=== PATIENT | female | born 1945 | race Caucasian/White ===

== ENCOUNTER 2020-09-01 10:59 | Outpatient (REF) | payer MEDICARE, OTHER, SELFPAY ==
--- NOTE | ~2020-09-01 | MM_ITS ---
EXAMINATION: BONE DENSITOMETRY CLINICAL INDICATION: Osteoporosis. COMPARISON: Previous BD dated 07/11/2018 and baseline BD dated 08/21/2012. TECHNIQUE: Using a [employer] DXA System (software version: 13.1) manufactured by [employer], dual-energy x-ray absorptiometry was performed of the lumbar spine and left hip. The images are of good technical quality. Summary results are attached. FINDINGS: AP SPINE L2-L4 (excluding L1): The data of L1-L4 has been changed to exclude the L1 vertebral body, because degenerative changes at this level may cause overestimation of lumbar spine density. Current: BMD 0.996 g/cm2, Z-score 0.6, T-score -1.7, osteopenia, 0.9% increase from previous, 6.9% increase from baseline (<5% change is not significant). Prior: BMD 0.987 g/cm2. Baseline: BMD 0.932 g/cm2. LEFT FEMUR, NECK: Current: BMD 0.583 g/cm2, Z-score -1.0, T-score -3.3, osteoporosis. Prior: BMD 0.558 g/cm2. Baseline: BMD 0.587 g/cm2. LEFT FEMUR, TOTAL: Current: BMD 0.648 g/cm2, Z-score -0.7, T-score -2.9, osteoporosis, 2.9% increase from previous, 1.1% increase from baseline (<5% change is not significant). Prior: BMD 0.987 g/cm2. Baseline: BMD 0.932 g/cm2. IDENTIFIED RISK FACTORS: Early menopause, height loss, osteoporosis, secondary osteoporosis. HISTORY OF FRACTURE: None listed. MEDICATIONS: Calcium, vitamin D, ERT/SERMS. MM/XR DEXA axial skeleton IMPRESSION: 1. DIAGNOSIS: Osteoporosis based on the lowest T-score value of -3.3 in the femoral neck applying World Health Organization criteria. 2. 10-YEAR FRACTURE RISK PREDICTION, FRAX: Major osteoporotic fracture (clinical spine, forearm, hip or shoulder) 23.8%. Hip fracture 10.6%. 3. Treatment Recommendations: NOF guidelines recommend consideration for treatment in postmenopausal women and men age 50 and older presenting with the following: -A hip or vertebral (clinical or morphometric) fracture. -T-score less than or equal to -2.5 at the femoral neck or spine after appropriate evaluation to exclude secondary causes. -Low bone mass at the hip or spine and a 10-year fracture probability by FRAX of greater than or equal to 3% for hip fracture or greater than or equal to 20% for major osteoporotic fracture based on the [place] adapted WHO algorithm. 4. Other Recommendations: All treatment decisions require clinical judgment and consideration of individual patient factors, including patient preferences, comorbidities, previous drug use, risk factors not captured in the FRAX model (e.g. frailty, falls, vitamin D deficiency, increased bone turnover, interval significant decline in bone density) and possible under or overestimation of fracture risk by FRAX. Additional medical evaluation for secondary cause of low bone mineral density may be appropriate. FUTURE SCAN RECOMMENDATION: People with diagnosed cases of osteoporosis or at high risk for fracture should have regular bone mineral density tests. For patients eligible for Medicare, routine testing is allowed once every 2 years. The testing frequency can be increased to one year for patients who have rapidly progressing disease, those who are receiving or discontinuing medical therapy to restore bone mass, or have additional risk factors.
== END 2020-09-01 11:00 | disposition home or self-care (01) ==
LOC: HO.MAMMO 10:59
PROVIDERS: Absent Provider Family Medicine; PCP Internal Medicine; Visit Provider Internal Medicine
DX: M81.0 Age-related osteoporosis without current pathological fracture (principal); R53.83 Other fatigue; N95.1 Menopausal and female climacteric states; E55.9 Vitamin D deficiency, unspecified
CPT/HCPCS: 77080

== ENCOUNTER 2020-09-01 11:39 | Outpatient (REF) | payer MEDICARE, OTHER, SELFPAY ==
[2020-09-01 12:35] LABS: MANUAL DIFF FLAG NO
[2020-09-01 12:44] LABS: Basophils Absolute Auto 0.1 X10*3/uL (0.0-0.2); Basophils Percent Auto 0.8 % (0-2); Eosinophils Absolute Auto 0.2 X10*3/uL (0.0-0.4); Eosinophils Percent Auto 2.1 % (0-4); Hematocrit 39.8 % (37-47); Hemoglobin 13.1 g/dl (12.0-16.0); Imm Gran Abs Auto 0.02 X10*3/uL (0.00-0.03); Imm Gran Pct Auto 0.3 % (0.0-0.4); Lymphocytes Percent Auto 28.1 % (20-40); Mean Corpuscular HGB Conc 32.9 g/dl (31.0-35.0); Mean Corpuscular Hemoglobin 32.8 pg (27.0-33.0); Mean Corpuscular Volume 99.5 fL (80-98); Mean Platelet Volume 11.2 fL (9.4-12.3); Monocytes Absolute Auto 0.5 X10*3/uL (0.1-1.2); Monocytes Percent Auto 7.5 % (2-11); Neutrophils Absolute Auto 4.4 X10*3/uL (2.0-8.3); Neutrophils Percent Auto 61.2 % (45-73); Platelet Count 206 X10*3/uL (160-400); Red Cell Distribution Width 12.7 % (11.0-16.0); White Blood Count 7.2 X10*3/uL (4.8-10.8)
[2020-09-01 13:14] LABS: Anion Gap 13 (12-20); Carbon Dioxide 27 mmol/L (22-29); Chloride 106 mmol/L (96-108); Potassium 4.3 mmol/L (3.3-5.1); Sodium 142 mmol/L (135-145)
[2020-09-01 13:15] LABS: Alanine Aminotransferase 17 U/L (0-31); Albumin Level 4.2 g/dL (3.5-5.0); Alkaline Phosphatase 48 U/L (39-117); Aspartate Amino Transferase 22 U/L (5-31); Bilirubin Total 0.4 mg/dL (0.0-1.0); Blood Urea Nitrogen 20 mg/dL (9-16); Calcium 9.3 mg/dL (8.4-10.2); Estimated Glomerular Filt Rate > 60; Glucose Random 96 mg/dL (60-115); Total Protein 6.6 g/dL (6.5-8.0)
[2020-09-01 13:36] LABS: Vitamin D 25-OH Total 40.6 ng/mL (>30)
[2020-09-03 02:48] LABS: DHEA Sulfate 83 mcg/dL (7-177)
[2020-09-05 15:32] LABS: Testosterone, Total 36 ng/dL (2-45)
[2020-09-06 13:16] LABS: Pregnenolone, LC/MS 39 ng/dL (22-237)
[2020-09-07 23:22] LABS: Progesterone 5.1 ng/mL
[2020-09-08 01:46] LABS: Estradiol, Ultrasensitive 113 pg/mL
== END 2020-09-01 11:40 | disposition home or self-care (01) ==
LOC: HO.LAB 11:39
PROVIDERS: Family Medicine; PCP Internal Medicine; Visit Provider Internal Medicine
DX: Z20.822 Contact with and (suspected) exposure to COVID-19 (principal)
CPT/HCPCS: 80053; 82306; 82627; 82670; 82681; 84143; 84144; 84403; 85025; U0003; U0005

== ENCOUNTER 2020-10-27 07:59 | Outpatient (REF) | payer MEDICARE, OTHER, SELFPAY ==
[2020-10-28 16:02] LABS: Calcium (PTHI) 9.8 mg/dL (8.6-10.4); PTHI 33 pg/mL (14-64)
[2020-10-31 16:16] LABS: Pregnenolone, LC/MS 101 ng/dL (22-237)
[2020-11-01 12:26] LABS: DHEA Sulfate 269 mcg/dL (7-177)
[2020-11-01 12:37] LABS: Testosterone, Free 3.5 pg/mL (0.2-3.7); Testosterone, Total 47 ng/dL (2-45)
[2020-11-03 20:52] LABS: Estradiol Free 0.25 pg/mL; Estradiol, Ultrasensitive 15 pg/mL
[2020-11-04 19:32] LABS: Progesterone 0.2 ng/mL
== END 2020-10-27 08:00 | disposition home or self-care (01) ==
LOC: HO.LAB 07:59
PROVIDERS: PCP Internal Medicine; Visit Provider Family Medicine
DX: N95.8 Other specified menopausal and perimenopausal disorders (principal); M81.8 Other osteoporosis without current pathological fracture; R53.83 Other fatigue
CPT/HCPCS: 36415; 82627; 82670; 82681; 83970; 84143; 84144; 84402; 84403

== ENCOUNTER 2020-11-02 14:31 | Outpatient (REF) | payer MEDICARE, OTHER, SELFPAY | END 2020-11-02 14:32 | disposition home or self-care (01) | LOC: HO.LAB 14:31 | PROVIDERS: PCP Internal Medicine; Visit Provider Internal Medicine | DX: Z20.822 Contact with and (suspected) exposure to COVID-19 (principal) | CPT/HCPCS: C9803; U0003; U0005 ==

== ENCOUNTER 2022-07-19 14:47 | Outpatient (REF) | payer MEDICARE, OTHER, SELFPAY ==
[2022-07-19 15:06] LABS: MANUAL DIFF FLAG NO
[2022-07-19 15:45] LABS: Basophils Absolute Auto 0.1 X10*3/uL (0.0-0.2); Basophils Percent Auto 0.6 % (0-2); Eosinophils Absolute Auto 0.3 X10*3/uL (0.0-0.4); Eosinophils Percent Auto 2.4 % (0-4); Hemoglobin 12.8 g/dl (12.0-16.0); Imm Gran Abs Auto 0.04 X10*3/uL (0.00-0.03); Imm Gran Pct Auto 0.4 % (0.0-0.4); Lymphocytes Percent Auto 26.7 % (20-40); Mean Corpuscular HGB Conc 32.8 g/dl (31.0-35.0); Mean Corpuscular Hemoglobin 32.7 pg (27.0-33.0); Mean Corpuscular Volume 99.5 fL (80.0-98.0); Mean Platelet Volume 11.3 fL (9.4-12.3); Monocytes Absolute Auto 0.8 X10*3/uL (0.1-1.2); Monocytes Percent Auto 7.3 % (2-11); Neutrophils Absolute Auto 6.9 x10*3/uL (2.0-8.3); Neutrophils Percent Auto 62.6 % (45-73); Platelet Count 252 X10*3/uL (160-400); Red Blood Count 3.92 X10*6/uL (4.20-5.50); Red Cell Distribution Width 12.9 % (11.0-16.0)
[2022-07-19 16:32] LABS: Alanine Aminotransferase 21 U/L (0-31); Albumin Level 4.3 g/dL (3.5-5.0); Alkaline Phosphatase 42 U/L (39-117); Anion Gap 12 (12-20); Aspartate Amino Transferase 24 U/L (5-31); Bilirubin Total 0.4 mg/dL (0.0-1.0); Blood Urea Nitrogen 21 mg/dL (9-16); Calcium 9.4 mg/dL (8.4-10.2); Carbon Dioxide 27 mmol/L (22-29); Chloride 103 mmol/L (96-108); Estimated Glomerular Filt Rate > 60; Glucose Random 89 mg/dL (60-115); Potassium 4.1 mmol/L (3.3-5.1); Sodium 138 mmol/L (135-145); Total Protein 6.6 g/dL (6.5-8.0)
[2022-07-19 16:49] LABS: Vitamin D 25-OH Total 54.4 ng/mL (>30)
[2022-07-20 18:43] LABS: DHEA Sulfate 94 mcg/dL (4-157)
[2022-07-25 20:59] LABS: Testosterone, Free 3.3 pg/mL (0.2-3.7); Testosterone, Total 49 ng/dL (2-45)
[2022-07-28 12:38] LABS: Pregnenolone, LC/MS 27 ng/dL (22-237)
[2022-08-02 22:48] LABS: Estradiol Free 6.74 pg/mL; Estradiol, Ultrasensitive 539 pg/mL
== END 2022-07-19 14:48 | disposition home or self-care (01) ==
LOC: HO.LAB 14:47
PROVIDERS: PCP Family Medicine; Referring Provider Family Medicine; Visit Provider Family Medicine
DX: R53.83 Other fatigue (principal); N95.8 Other specified menopausal and perimenopausal disorders; E55.9 Vitamin D deficiency, unspecified
CPT/HCPCS: 36415; 80053; 82306; 82627; 82670; 82681; 84143; 84144; 84402; 84403; 85025

== ENCOUNTER 2022-08-21 14:55 | Outpatient (REF) | payer MEDICARE, OTHER, SELFPAY ==
[2022-08-31 04:59] LABS: Estradiol Free 0.45 pg/mL; Estradiol, Ultrasensitive 40 pg/mL
== END 2022-08-21 14:56 | disposition home or self-care (01) ==
LOC: HO.LAB 14:55
PROVIDERS: Absent Provider Family Medicine; PCP Family Medicine; Visit Provider Family Medicine
DX: N95.8 Other specified menopausal and perimenopausal disorders (principal)
CPT/HCPCS: 36415; 82670; 82681

== ENCOUNTER 2022-09-11 14:29 | Outpatient (REF) | payer MEDICARE, OTHER, SELFPAY ==
--- NOTE | ~2022-09-11 | MM_ITS ---
EXAMINATION: BONE DENSITOMETRY CLINICAL INDICATION: Age-related osteoporosis without current pathological fracture. COMPARISON: Previous BD dated 09/01/2020 and baseline BD dated 08/21/2012. TECHNIQUE: Using a [employer] DXA System (software version: 13.1) manufactured by [employer], dual-energy x-ray absorptiometry was performed of the lumbar spine and left hip. The images are of good technical quality. Summary results are attached. FINDINGS: LEFT FEMUR, NECK: Current: BMD 0.577 g/cm2, Z-score -0.9, T-score -3.3, osteoporosis. Prior: BMD 0.583 g/cm2. Baseline: BMD 0.587 g/cm2. LEFT FEMUR, TOTAL: Current: BMD 0.641 g/cm2, Z-score -0.7, T-score -2.9, osteoporosis, 1.1% decrease from previous, 0.0% no change from baseline (<5% change is not significant). Prior: BMD 0.648 g/cm2. Baseline: BMD 0.641 g/cm2. AP SPINE L1-L4: Current: BMD 1.044 g/cm2, Z-score 1.2, T-score -1.1, osteopenia, 3.9% increase from previous, 9.3% increase from baseline (<5% change is not significant). Prior: BMD 1.005 g/cm2. Baseline: BMD 0.955 g/cm2. IDENTIFIED RISK FACTORS: Early menopause, secondary osteoporosis, height loss, osteoporosis. HISTORY OF FRACTURE: None listed. MEDICATIONS: Calcium supplements or multivitamin, vitamin D, ERT/SERMS. MM/XR DEXA axial skeleton IMPRESSION: 1. DIAGNOSIS: Osteoporosis based on the lowest T-score value of -3.3 in the femoral neck applying World Health Organization criteria. 2. 10-YEAR FRACTURE RISK PREDICTION, FRAX: According to the guidelines, FRAX calculation should only be performed on patients in the osteopenia bone density category. Therefore, FRAX was not performed on this patient. 3. Treatment Recommendations: NOF guidelines recommend consideration for treatment in postmenopausal women and men age 50 and older presenting with the following: -A hip or vertebral (clinical or morphometric) fracture. -T-score less than or equal to -2.5 at the femoral neck or spine after appropriate evaluation to exclude secondary causes. -Low bone mass at the hip or spine and a 10-year fracture probability by FRAX of greater than or equal to 3% for hip fracture or greater than or equal to 20% for major osteoporotic fracture based on the [place] adapted WHO algorithm. 4. Other Recommendations: All treatment decisions require clinical judgment and consideration of individual patient factors, including patient preferences, comorbidities, previous drug use, risk factors not captured in the FRAX model (e.g. frailty, falls, vitamin D deficiency, increased bone turnover, interval significant decline in bone density) and possible under or overestimation of fracture risk by FRAX. Additional medical evaluation for secondary cause of low bone mineral density may be appropriate. FUTURE SCAN RECOMMENDATION: People with diagnosed cases of osteoporosis or at high risk for fracture should have regular bone mineral density tests. For patients eligible for Medicare, routine testing is allowed once every 2 years. The testing frequency can be increased to one year for patients who have rapidly progressing disease, those who are receiving or discontinuing medical therapy to restore bone mass, or have additional risk factors.
== END 2022-09-11 14:30 | disposition home or self-care (01) ==
LOC: HO.MAMMO 14:29
PROVIDERS: PCP Family Medicine; Visit Provider Family Medicine
DX: Z13.820 Encounter for screening for osteoporosis (principal); Z78.0 Asymptomatic menopausal state; M81.0 Age-related osteoporosis without current pathological fracture
CPT/HCPCS: 77080